=== PATIENT | female | born 1995 | race Caucasian/White ===

== ENCOUNTER 2019-11-06 20:32 | Emergency (ER) | payer OTHER, MEDICAID, SELFPAY ==
[2019-11-06 20:34] VITALS: BP 128/70; PULSE 98; RESP 16; TEMP 36.5; O2SAT 100
[2019-11-06 20:44] VITALS: BP 128/62; PULSE 100; RESP 20; TEMP 36.9; O2SAT 100
--- NOTE | 2019-11-06 20:46 | ED.URI ---
HPI - URI/Sore Throat General Chief Complaint: Upper Respiratory Infection Stated Complaint: I want to know if i have strep Time Seen by Provider: 11/06/19 20:42 Source: patient and RN notes reviewed Mode of arrival: other Limitations: no limitations History of Present Illness HPI Narrative: Pt is a 24 y/o female who presents to the ED with c/o nasal congestion and nasal drainage that began last night. Pt believes that she has strep throat or a sinus infection. Pt states that her throat feels like glass whenever she swallows. She states her sx are worsened whenever she is laying flat or moving. Pt also reports a sore throat, odynophagia, and a productive cough, but denies a fever, body aches, and being around any sick contacts. denies fever, sick contact, body aches recently went to [place] and hit the slot machines hx of tubal, smoker, marijuana, MD elicited complaint: nasal congestion (and drainage) Onset (ago): day(s) (1) Consistency: constant Related Data Allergies Allergy/AdvReac Type Severity Reaction Status Date / Time flurbiprofen Allergy Unknown HIVES Verified 08/04/19 11:33 GREEN PEPPERS Allergy Mild Rash Uncoded 08/04/19 11:16 [facility] Surgical History Surgical History (Updated 11/06/19 @ 20:54 by Rhonda Thomas) History of tubal ligation Family History Family History (Updated 04/18/14 @ 07:13 by DOCTOR UNKNOWN) Grandparent Family history of lung cancer Family history of malignant neoplasm of ovary Family history of heart disease in male family member before age 55 Diabetes mellitus Social History Social History (Updated 08/04/19 @ 11:40 by Corin Lin, [facility], ) Smoking packs per day: 1 Smoking cigarettes per day: 20.0 Years smoked: 0.5 Smoking pack-years: 0.50 Smoking status: Current every day smoker Tobacco type: cigarettes Alcohol intake: never Substance use: current Substance use type: marijuana Exam Const: General: healthy appearing, no acute distress, well developed and alert Orientation/consciousness: patient oriented x3 Limitations: no limitations HENMT: Head: normocephalic and atraumatic Ears: external ears normal General nose exam: Normal external nose present Mouth: Yes moist mucous membranes Throat: tonsils normal and posterior oropharynx abnormal erythema; no edema and no exudates Resp: Effort & Inspection: normal respiratory effort and able to speak in complete sentences Auscultation: clear to auscultation bilaterally Cardio: Rate: regular rate Rhythm: regular rhythm Peripheral pulses: radial pulses present and popliteal pulses present Neuro: General: patient oriented x3 Speech: normal speech Course Vital Signs Vital signs: Vital Signs Temperature 97.7 F 11/06/19 20:34 Pulse Rate 98 11/06/19 20:34 Respiratory Rate 16 11/06/19 20:34 Blood Pressure 128/70 11/06/19 20:34 Pulse Oximetry 100 11/06/19 20:34 Temperature 98.4 F 11/06/19 20:44 Pulse Rate 100 11/06/19 20:44 Respiratory Rate 20 11/06/19 20:44 Blood Pressure 128/62 11/06/19 20:44 Pulse Oximetry 100 11/06/19 20:44 MDM - URI/Sore Throat MDM Narrative Medical decision making narrative: Strep negative. URI. D/c. Lab Data Labs: Strep Screen Presumptive Negative *(Reference Range: Negative)* Discharge Plan Discharge Clinical Impression: Upper respiratory infection Qualifiers: URI type: unspecified URI Qualified Code(s): J06.9 - Acute upper respiratory infection, unspecified Patient Disposition: Home, Self-Care Condition: Stable Instructions: Upper Respiratory Infection (ED) Additional Instructions: Return to the ER if you have chest pain, you cannot breathe, you cannot swallow, or you have other concerns. Take over the counter decongestants and throat lozenges to help control your symptoms. Prescriptions: No Action albuterol sulfate [ProAir HFA] 90 mcg/actuation HFA aerosol inhaler 2
[2019-11-06 21:01] VITALS: BP 126/60; PULSE 97; RESP 20; TEMP 36.6; O2SAT 100
== END 2019-11-06 21:03 | disposition home or self-care (01) ==
PROVIDERS: Emergency Provider Emergency Medicine
DX: J06.9 Acute upper respiratory infection, unspecified (principal); F17.210 Nicotine dependence, cigarettes, uncomplicated
CPT/HCPCS: 87081; 87880; 99283

== ENCOUNTER 2019-11-10 16:29 | Emergency (ER) | payer OTHER, MEDICAID, SELFPAY ==
[2019-11-10 16:39] VITALS: BP 109/64; PULSE 94; RESP 16; TEMP 36.8; O2SAT 100
--- NOTE | 2019-11-10 16:42 | ED.URI ---
HPI - URI/Sore Throat General Chief Complaint: Upper Respiratory Infection Stated Complaint: chest congestion/rattles/mouth dryness/cough History of Present Illness HPI Narrative: This is a 24-year-old comes in complaining of cough congestion patient states that she has some shortness of breath. Patient states that she is having a sore throat denies taking anything for symptoms patient denies having any fever nausea vomiting and/or diarrhea Related Data Allergies Allergy/AdvReac Type Severity Reaction Status Date / Time flurbiprofen Allergy Unknown HIVES Verified 08/04/19 11:33 GRE[employer] PEPPERS Allergy Mild Rash Uncoded 08/04/19 11:16 Review of Systems Review of Systems: Narrative: CONSTITUTIONAL: Denies fever, chills, or sweats. EYES: Denies visual changes, redness, or discharge. ENT: Reports rhinorrhea, congestion, sore throat, or otalgia. CARDIOVASCULAR:Denies chest pain, palpitations, or edema. RESPIRATORY: Reports cough or dyspnea. GASTROINTESTINAL: Denies abdominal pain, nausea, vomiting, or diarrhea. GENITOURINARY: Denies dysuria or hematuria. SKIN:[Denies rash or itching. MUSCULOSKELETAL:Denies back pain, joint pain, or myalgia. NEUROLOGIC: Denies headache, numbness, or weakness. PSYCHIATRIC:Denies anxiety or depression [facility] Past Medical History Medical History (Updated 11/13/19 @ 11:57 by Bita Newby NP) Ovarian cyst RSV (respiratory syncytial virus infection) Surgical History Surgical History (Updated 11/06/19 @ 20:54 by Rhonda Thomas) History of tubal ligation Family History Family History (Updated 04/18/14 @ 07:13 by DOCTOR UNKNOWN) Grandparent Family history of lung cancer Family history of malignant neoplasm of ovary Family history of heart disease in male family member before age 55 Diabetes mellitus Social History Social History (Updated 11/06/19 @ 20:54 by Rhonda Thomas) Smoking packs per day: 1 Smoking cigarettes per day: 20.0 Years smoked: 0.5 Smoking pack-years: 0.50 Smoking status: Current every day smoker Tobacco type: cigarettes Alcohol intake: never Substance use: current Substance use type: marijuana Comments At time as signature, I have reviewed and agree with nursing past medical, social, surgical and family history. Please see nursing chart for further information. There is no relevant family history pertinent to the presenting complaint. Exam Narrative: Exam Narrative: GENERAL:Well-appearing, well-nourished, and in no acute distress. HEAD:Normocephalic, atraumatic. EYES: PERRLA and EOMI. ENT: Nares clear, positive rhinorrhea or epistaxis. Mucous membranes moist. Pharyngeal erythema NECK: Supple. CHEST: Clear to auscultation. No respiratory distress. HEART: Regular rate and rhythm. No murmur heard. Normal peripheral pulses. ABDOMEN: Soft, nontender, nondistended, normal active bowel sounds. EXTREMITIES: Normal range of motion. No edema. SKIN: Warm, dry, no rash. NEURO: No focal deficits. Alert and oriented x3. Patient smells of cigarette smoke clothing is disheveled Course Vital Signs Vital signs: Vital Signs Temperature 98.3 F 11/10/19 16:39 Pulse Rate 94 11/10/19 16:39 Respiratory Rate 16 11/10/19 16:39 Blood Pressure 109/64 11/10/19 16:39 Pulse Oximetry 100 11/10/19 16:39 Temperature 98.3 F 11/10/19 16:39 Pulse Rate 94 11/10/19 16:39 Respiratory Rate 16 11/10/19 16:39 Blood Pressure 109/64 11/10/19 16:39 Pulse Oximetry 100 11/10/19 16:39 MDM - URI/Sore Throat Differential Diagnosis Differential diagnosis: Likely upper respiratory infection, otitis media, sinusitis, viral infection, bronchitis, pharyngitis and other Discharge Plan Discharge Clinical Impression: Upper respiratory infection Patient Disposition: Home, Self-Care Condition: Stable Instructions: Antibiotic Form, Pharyngitis (ED), Rhinosinusitis (ED), Wheezing (ED) Prescriptions: New cetirizine [Zyrtec
== END 2019-11-10 16:52 | disposition home or self-care (01) ==
PROVIDERS: Emergency Provider Nurse Practitioner Family
DX: J06.9 Acute upper respiratory infection, unspecified (principal); F17.210 Nicotine dependence, cigarettes, uncomplicated
CPT/HCPCS: 99213; G0463

== ENCOUNTER 2019-11-23 20:07 | Emergency (ER) | payer OTHER, MEDICAID, SELFPAY ==
--- NOTE | ~2019-11-23 | XR_ITS ---
EXAMINATION: XR hand LT 2V INDICATION: Left hand pain, initial encounter TECHNIQUE: Two views of the left hand are obtained. COMPARISON: None available FINDINGS: There is an acute, traumatic, closed, oblique shaft fracture of the fifth metacarpal. The d istal fracture fragment is laterally displaced approximately 2 mm. Soft tissue swelling surrounds the fracture. Joint spaces are normal. No additional acute osseous findings are evident. IMPRESSION: 1. Acute oblique shaft fracture of the fifth metacarpal. Reviewed, dictated and finalized at location A.
[2019-11-23 20:10] VITALS: BP 114/70; PULSE 98; RESP 18; TEMP 36.4; O2SAT 98
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
[2019-11-23 21:57] VITALS: BP 124/70; PULSE 80; RESP 16; O2SAT 98
== END 2019-11-23 22:01 | disposition home or self-care (01) ==
PROVIDERS: Emergency Provider Emergency Medicine
DX: S62.327A Displaced fracture of shaft of fifth metacarpal bone, left hand, initial encounter for closed fracture (principal); V43.52XA Car driver injured in collision with other type car in traffic accident, initial encounter; W22.11XA Striking against or struck by driver side automobile airbag, initial encounter
CPT/HCPCS: 29125; 73120; 99284; A4565; A9270

== ENCOUNTER 2019-11-29 02:28 | Day surgery (SDC) | payer OTHER, MEDICAID, SELFPAY ==
[2019-11-28 13:29] VITALS: BMI 26.6
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
--- NOTE | ~2019-11-29 | XR_ITS ---
EXAMINATION: XR surgery orthopedic DATE: 11/29/2019 13:03 INDICATION: Spiral fracture of left fifth metacarpal. TECHNIQUE: 3 intraoperative fluoroscopic views of left hand were obtained. I was not present. Fluoros copy exposure time was 1 minute and 50 seconds. COMPARISON: Left hand radiographs 11/23/2019 FINDINGS: There is a spiral fracture of diaphysis of left fifth metacarpal in near-anatomic alignment status post open reduction internal fixation with 2 screws. IMPRESSION: 1. Spiral fracture of diaphysis of left fifth metacarpal status post open reduction internal fixation . Reviewed, dictated and finalized at location A. IMPRESSION: 1. Spiral fracture of diaphysis of left fifth metacarpal status post open reduc tion internal fixation.
[2019-11-29 08:45] VITALS: BP 127/71; PULSE 88; RESP 20; TEMP 36.2; O2SAT 100
[2019-11-29] MEDS: LACTATED RINGERS 1,000 ML 30 ML IV CONT (08:55)
--- NOTE | 2019-11-29 09:12 | WPDANESEPPF ---
Anes - Initial Pre Proc Eval Procedure: Operation Date: 11/29/19 10:30 Proposed Procedures p Open Reduction Internal Fixation Left Fifth Metacarpal - Joe Cullen MD Date/Time: 11/29/19 09:12 Surgeon: Joe Cullen MD Pre Op Diagnosis: Closed Non Displaced Left Fifth Metacarpal Fx Patient Data Age: 24 Gender: F Height: 5 ft 2 in Weight: 60.6 kg Last Vital Signs Temp 36.2 C L 11/29/19 08:45 Pulse 88 11/29/19 08:45 Resp 20 11/29/19 08:45 BP 127/71 11/29/19 08:45 Pulse Ox 100 11/29/19 08:45 Allergies Allergy/AdvReac Type Severity Reaction Status Date / Time flurbiprofen Allergy Unknown HIVES Verified 11/29/19 08:58 GREEN PEPPERS Allergy Mild Rash Uncoded 11/29/19 08:58 Home Medications Medication Instructions Recorded Confirmed Type albuterol sulfate 2 puff INHALATION QID PRN #8 gm 11/06/19 11/29/19 Rx Patient hx anesthesia problems: none Family hx anesthesia problems: none PMFSH Past Medical History Medical History Asthma GERD (gastroesophageal reflux disease) Ovarian cyst RSV (respiratory syncytial virus infection) Surgical History Surgical History History of tubal ligation Family History Family History Grandparent Family history of lung cancer Family history of malignant neoplasm of ovary Family history of heart disease in male family member before age 55 Diabetes mellitus Social History Social History Smoking packs per day: 1 Smoking cigarettes per day: 20.0 Years smoked: 0.5 Smoking pack-years: 0.50 Smoking status: Current every day smoker Tobacco type: cigarettes Alcohol intake: never Substance use: current Substance use type: marijuana Gender identity (if verbalized by the patient): Female Anes - Eval Final PreProcedure Day of Procedure 11/29/19 09:12 Patient weight: normal Heart: regular rate and rhythm Lungs: clear to auscultation Airway: Mallampati scale class II Neurological: alert and oriented Last oral intake: >/= 8 hours ASA classification: III Emergent: no Anesthetic plan: proceed Anesthesia type and monitoring: general LMA and standard monitoring Informed Consent: The patient's anesthetic plan and its attendant risks and benefits were discussed with the patient/family/POA. Questions were solicited and answers provided to the satisfaction of the patient/family/POA.
[2019-11-29] MEDS: SCOPOLAMINE 1.5 MG PATCH TRANSDERM (09:27)
[2019-11-29] MEDS: MIDAZOLAM HCL 2 MG/2 ML VIAL IV PUSH (09:40)
--- NOTE | 2019-11-29 10:31 | WPDHPUPDATE1 ---
History and Physical Update Update Date/Time: 11/29/19 10:31 History and Physical has been reviewed, including an updated exam of the patient. There are NO changes in the patient's condition. Risks, benefits, and alternatives have been discussed and questions answered. Patient agrees to proceed with procedure.
--- NOTE | 2019-11-29 10:57 | PM.OP ---
Procedure Note - Brief Procedure Note - Brief Date of procedure: 11/29/19 Pre-op diagnosis: Closed Non Displaced Left Fifth Metacarpal Fx Post-op diagnosis: same Procedure performed: ORIF displaced fracture of left 5th metacarpal shaft. Anesthesia: GETA Surgeon: Joe Cullen MD Legal Writing Professor: Gisella Tourniquet time (min): 60 Drains: No Packing: No Pathology: none sent Complications: No immediate complications Condition: stable Disposition: PACU
[2019-11-29] MEDS: ceFAZolin 2 GM/D5W 50 ML 2 GM/50 ML BAG IVPB (11:29)
[2019-11-29 13:12] VITALS: BP 114/52; PULSE 96; RESP 16; TEMP 36.6; O2SAT 95
[2019-11-29 13:25] VITALS: BP 129/71; PULSE 85; RESP 16; O2SAT 100
[2019-11-29 13:40] VITALS: PULSE 69; RESP 12; O2SAT 100
--- NOTE | 2019-11-29 13:52 | SUR.PHASEI ---
1348 - dr. serna at bedside talking with pt.
[2019-11-29 13:55] VITALS: BP 121/74; PULSE 69; RESP 14; O2SAT 99
[2019-11-29 14:29] VITALS: BP 130/82; PULSE 82
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
--- NOTE | 2019-11-29 16:37 | PM.PROC ---
Procedure Note - Detailed Date of procedure: 11/29/19 Pre-op diagnosis: Closed Non Displaced Left Fifth Metacarpal Fx Closed displaced fracture of the left 5th metacarpal shaft. Post-op diagnosis: same Procedure performed: ORIF of displaced fracture of the left 5th metacarpal shaft. Description of procedure: The appropriate hand was marked while the patient was in the holding area. She was wheeled to the operating room and placed supine on the operating table. A time-out was held and confirmed she was given general endotracheal intubation. The left hand and forearm were prepped and draped in the usual fashion. A C-arm image was made for planning purposes. The area of the 5th metacarpal was infiltrated with a 50 50 mixture of 1% lidocaine with epinephrine and 0.5% Marcaine plain. A chema was placed on the dorsal hand over the 5th metacarpal for incision. The tourniquet was inflated to 250 mmHg. The incision was made through the skin. The subcutaneous tissue was divided by sharp and blunt dissection. No significant cutaneous nerves were identified. Access to the periosteum was done just to the radial side of the extensor tendon the fracture was easily identified and was exposed throughout its length. Fracture clot was removed. The fracture was reduced and a bone clamp applied. Two screws from the modular handset were utilized for fixation. These were 1.3 mm screws 1 was 7 mm the other 5 mm. Both were countersunk. Stability was excellent. C-arm images confirmed the position of the screws and the appropriateness of their length. The deep fascia was repaired after irrigating the wound. The skin was closed with a running intradermal 4-0 Monocryl suture. Soft bulky bandage with Coban wrap around the ring and small fingers was applied. No splint was applied. She was discharged from the operating room stable condition. The tourniquet was released at 60 minutes just at the time the wound closure began. She received 2 g of Ancef prior to start time. She was discharged home with a prescription for hydrocodone 12/22/2024 14. She was also discharged with instructions in wound care and follow-up. The discharging nurse reported that the patient was in a great her a to get out of the operating area and the IV was discontinued abruptly. Surgeon: Joe Cullen MD
== END 2019-11-29 14:45 | disposition home or self-care (01) ==
PROVIDERS: PCP Family Medicine; Visit Provider Plastic Surgery
PROC: (CPT 26615; principal; 2019-11-29 10:30)
DX: S62.357A Nondisplaced fracture of shaft of fifth metacarpal bone, left hand, initial encounter for closed fracture (principal); V49.9XXA Car occupant (driver) (passenger) injured in unspecified traffic accident, initial encounter; J45.909 Unspecified asthma, uncomplicated; K21.9 Gastro-esophageal reflux disease without esophagitis; F17.210 Nicotine dependence, cigarettes, uncomplicated; F12.90 Cannabis use, unspecified, uncomplicated
CPT/HCPCS: 26615; A9270; C1713; J0690; J1100; J2250; J2270; J2405; J2704; J3010; J7120

== ENCOUNTER 2019-12-11 19:54 | Emergency (ER) | payer OTHER, MEDICAID, SELFPAY ==
[2019-12-11 20:07] VITALS: BP 111/76; PULSE 96; RESP 16; TEMP 38.6; O2SAT 99
--- NOTE | 2019-12-11 20:12 | ED.URI ---
HPI - URI/Sore Throat General Chief Complaint: Upper Respiratory Infection Stated Complaint: fever/ear infection/sore throat Time Seen by Provider: 12/11/19 20:12 Source: patient and RN notes reviewed Mode of arrival: ambulatory Limitations: no limitations History of Present Illness HPI Narrative: 24 year old female who presents to [facility] with complaints of sore throat, left ear pain and fevers since this morning. Patient states that she has been taking Tylenol and Ibuprofen for her fevers and pain which she rates as 6/10 and is aggravated by swallowing. Patient denies any sinus congestion or drainage, no cough or any shortness of breath or any known exposure to strep. Patient states that her last dose of oral antipyretics was at 1800. MD elicited complaint: fever, sore throat and other (ear pain) Pertinent past history: seasonal allergies Onset (ago): day(s) (1) Consistency: constant Severity: moderate Pain scale (0-10): 6 Able to tolerate fluids by mouth: Yes Exacerbating factors: swallowing Relieving factors: nothing Associated symptoms: fever, chills, sore throat and ear pain (left) Treatments prior to arrival: acetaminophen and ibuprofen Related Data Allergies Allergy/AdvReac Type Severity Reaction Status Date / Time flurbiprofen Allergy Unknown HIVES Verified 12/11/19 20:00 GREEN PEPPERS Allergy Mild Rash Uncoded 12/11/19 20:00 Review of Systems Review of Systems: Narrative: CONSTITUTIONAL: Positive for fever, chills, or sweats. EYES: Denies visual changes, redness, or discharge. ENT: Denies rhinorrhea, congestion,positive for sore throat, left otalgia. CARDIOVASCULAR: Denies chest pain, palpitations, or edema. RESPIRATORY: Denies cough or dyspnea. GASTROINTESTINAL: Denies abdominal pain, nausea, vomiting, or diarrhea. GENITOURINARY: Denies dysuria or hematuria. SKIN: Denies rash or itching. MUSCULOSKELETAL: Denies back pain, joint pain, or myalgia. NEUROLOGIC: Denies headache, numbness, or weakness. PSYCHIATRIC: Denies anxiety or depression. All systems reviewed & are unremarkable except as noted in HPI and below PMFSH Past Medical History Medical History Asthma GERD (gastroesophageal reflux disease) Ovarian cyst RSV (respiratory syncytial virus infection) Surgical History Surgical History History of tubal ligation Family History Family History Grandparent Family history of lung cancer Family history of malignant neoplasm of ovary Family history of heart disease in male family member before age 55 Diabetes mellitus Social History Social History (Updated 12/12/19 @ 12:14 by Arielle Ashby NP) Smoking packs per day: 0.5 Smoking cigarettes per day: 10.0 Years smoked: 1.5 Smoking pack-years: 0.75 Smoking status: Current every day smoker Tobacco type: cigarettes Alcohol intake: never Substance use: current Substance use type: marijuana Living arrangements: with family Gender identity (if verbalized by the patient): Female Comments At time of signature, agree with nursing past medical, surgical, social history. There is no relevant family history pertinent to the presenting complaint Exam Narrative: Exam Narrative: GENERAL: Well-appearing, well-nourished, and in no acute distress. HEAD: Normocephalic, atraumatic. EYES: PERRLA and EOMI. ENT: Nares clear, no rhinorrhea or epistaxis. Mucous membranes moist.TM's normal with good light reflex, throat red swollen with pus pockets noted to bilateral tonsils with tonsils red and enlarged. NECK: Supple.lymphadenopathy CHEST: Clear to auscultation. No respiratory distress.SAO2 99% on room air HEART: Regular rate and rhythm. No murmur heard. Normal peripheral pulses. ABDOMEN: Soft, nontender, nondistended, normal active bowel sounds. EXTREMITIES: Normal range of motion. No
== END 2019-12-11 20:23 | disposition home or self-care (01) ==
PROVIDERS: Emergency Provider Registered Nurse
DX: J02.0 Streptococcal pharyngitis (principal); J45.909 Unspecified asthma, uncomplicated; K21.9 Gastro-esophageal reflux disease without esophagitis; F17.210 Nicotine dependence, cigarettes, uncomplicated
CPT/HCPCS: 87880; 99213; G0463

== ENCOUNTER 2020-03-01 14:40 | Emergency (ER) | payer OTHER, MEDICAID, SELFPAY | END 2020-03-01 15:00 | disposition left against medical advice (07) | LOC: EXPCOLL 14:55 | PROVIDERS: Emergency Provider Nurse Practitioner; PCP Family Medicine | DX: Z53.21 Procedure and treatment not carried out due to patient leaving prior to being seen by health care provider (principal) | CPT/HCPCS: 99199 ==

== ENCOUNTER 2020-10-03 11:42 | Emergency (ER) | payer OTHER, MEDICAID, SELFPAY ==
[2020-10-03 12:01] VITALS: BP 124/73; PULSE 97; RESP 16; TEMP 36.3; O2SAT 100
--- NOTE | 2020-10-03 12:18 | ED.BACK ---
HPI - Back Pain/Injury General Chief Complaint: Back Pain/Injury Stated Complaint: Back Pain Time Seen by Provider: 10/03/20 12:10 Source: patient Mode of arrival: ambulatory Limitations: no limitations History of Present Illness HPI Narrative: Phoebe Hill is a 25 yo female with a PMH of uti who comes with mid back discomfort, started a day ago. Unsure if back tenderness is due to lifting/movement or uti. Pain in back is 5/10 midback (not lumbar), more on left than right. States she has a history of intermittent UTIs, only feel like she has a UTI but wants to be evaluated for one Related Data Home Medications Medication Instructions Recorded Confirmed albuterol sulfate [Ventolin HFA] INHALATION 10/03/20 Allergies Allergy/AdvReac Type Severity Reaction Status Date / Time flurbiprofen Allergy Unknown HIVES Verified 12/11/19 20:00 GREEN PEPPERS Allergy Mild Rash Uncoded 12/11/19 20:00 Review of Systems Review of Systems: Narrative: CONSTITUTIONAL: Denies fever, chills, sweats. EYES: Denies visual changes, redness, discharge. ENT: Denies rhinorrhea, congestion, sore throat, otalgia. CARDIOVASCULAR: Denies chest pain, palpitations, edema. RESPIRATORY: Denies dyspnea, wheezing, cough GASTROINTESTINAL: Denies abdominal pain, nausea, vomiting, diarrhea. GENITOURINARY: Denies dysuria, hematuria, abnormal discharge SKIN: Denies rash or itching. NEUROLOGIC: Denies numbness, or focal weakness. PSYCHIATRIC: Denies anxiety or depression. Mid back pain with movement PMFSH Past Medical History Medical History (Updated 10/03/20 @ 12:29 by Latisha España CNP) Asthma GERD (gastroesophageal reflux disease) Ovarian cyst RSV (respiratory syncytial virus infection) Surgical History Surgical History History of tubal ligation Family History Family History Grandparent Family history of lung cancer Family history of malignant neoplasm of ovary Family history of heart disease in male family member before age 55 Diabetes mellitus Social History Social History (Updated 10/03/20 @ 12:33 by Latisha España CNP) Smoking packs per day: 1.0 Smoking cigarettes per day: 20.0 Years smoked: 1.5 Smoking pack-years: 1.50 Smoking status: Current every day smoker Tobacco type: cigarettes Alcohol intake: never Substance use: current Substance use type: marijuana Gender identity (if verbalized by the patient): Female Comments At time of signature, I agree with nursing past medical, surgical, social and family history. There is no relevant family history pertinent to the presenting complaint. Exam Narrative: Exam Narrative: GENERAL: This is a well-nourished, well-developed patient, in mild distress. HEAD: normocephalic, atraumatic. EYES: Sclera clear/white. Vision is grossly intact. EARS: External ears normal, Hearing grossly intact. NOSE: External nose normal, no rhinorrhea. THROAT: Mucous membranes moist, NECK: Neck supple, CARDIOVASCULAR: tachycardic rate and rhythm without murmurs, gallops, or rubs. RESPIRATORY: Clear to auscultation. Breath sounds equal bilaterally. No wheezes, rales, or rhonchi. GASTROINTESTINAL: Abdomen soft, non-tender, SKIN: warm, intact with no suspicious lesions or rash, good texture and turgor. NEURO: awake, alert, and oriented to person, place and time. There were no obvious focal neurologic abnormalities. Steady gait EXTREMITIES: Normal range of motion. BACK: tender without deformity, midback pain tender with twisting, L > R; no flank pain Course Course Emergency Course: Came in complaining of back pain thinking that she might have a UTI UA is negative for protein nitrates and leukocyte esterase. Discussed with her possible causes of back pain; based on exam discussed it might be muscle strain and started on baclofen Discussed good sleeping situations and
== END 2020-10-03 12:33 | disposition home or self-care (01) ==
PROVIDERS: Emergency Provider Nurse Practitioner
DX: M54.6 Pain in thoracic spine (principal); F17.210 Nicotine dependence, cigarettes, uncomplicated; J45.909 Unspecified asthma, uncomplicated; K21.9 Gastro-esophageal reflux disease without esophagitis
CPT/HCPCS: 81003; 99213; G0463

== ENCOUNTER 2021-01-24 10:00 | Emergency (ER) | payer SELFPAY ==
[2021-01-24] VITALS (10 sets, daily range): BP systolic 96–132; BP diastolic 52–84; PULSE 63–114; RESP 15–25; TEMP 36.6–37.6; O2SAT 97–100
--- NOTE | ~2021-01-24 | US_ITS ---
EXAMINATION: US pelvic complete w TV EXAM DATE: 01/24/2021 13:07 INDICATION: Right lower quadrant pain. TECHNIQUE: Pelvic transabdominal and transvaginal sonogram was performed. There are multiple graysca le and Doppler images available for interpretation. There is no prior study for comparison. FINDINGS: Uterus measures 9.0 x 4.9 x 4.9 cm, possible small posterior myometrial fibroid measuring up to 1.7 cm. Endometrial stripe measures 5 mm, within normal limits. There is no free pelvic fluid. Right adnexa: The ovary measures 2.9 x 2.5 x 1.9 cm and is morphologically normal. Ovarian vascular f low confirmed. Left adnexa: The ovary measures 2.8 x 2.0 x 2.5 cm and is morphologically normal. Ovarian vascular fl ow confirmed. IMPRESSION: 1. Possible small fibroid. Reviewed, dictated and finalized at location A. IMPRESSION: 1. Possible small fibroid.
--- NOTE | ~2021-01-24 | CT_ITS ---
EXAMINATION: CT abdomen pelvis w con EXAM DATE: 01/24/2021 11:44 INDICATION: Dysuria, low abdominal pain. Nausea vomiting and diarrhea. TECHNIQUE: Spiral CT of the abdomen and pelvis was performed following intravenous injection of 100 m L Omnipaque 350. Axial, coronal and sagittal images of the abdomen and pelvis were reviewed. The do se-length product (DLP) for this examination was 241.80 mGy-cm. The exposure was tailored according to patient size (auto mA exposure control), and iterative reconstruction (ASIR) was used as additiona l dose reduction technique. Comparison is made to prior examination from 11/07/2016. FINDINGS: The liver, spleen, adrenal glands and pancreas are unremarkable. Gallbladder is unremarkab le. No biliary obstruction. Portal and splenic veins are patent. Kidneys enhance symmetrically. T here is no hydronephrosis. The uterus and ovaries are unremarkable, no adnexal mass. The bladder i s unremarkable. There is no retroperitoneal or pelvic lymphadenopathy. The appendix is normal. The stomach and small bowel are unremarkable. There is expected amount of c olonic stool. No free intraperitoneal gas. The heart is normal in size. There are no pericardial or pleural effusions. The lung bases are unremarkable. The bones are unremarkable. IMPRESSION: 1. No acute intra-abdominal findings. Reviewed, dictated and finalized at location A.
--- NOTE | 2021-01-24 10:14 | ECG_ITS ---
Measurements Intervals [place] Rate: 102 P: 68 WV: 159 QRS: 60 QRSD: 93 T: 60 QT: 328 QTc: 427 Interpretive Statements SINUS TACHYCARDIA MINIMAL Q WAVES- ANTEROLAT/INF LEADS BASELINE ARTIFACT- II, III, AVF, V4-V6 BORDERLINE ECG Electronically Signed On 01-24-2021 10:43:24 CDT by Alexis Keith D.O.
--- NOTE | 2021-01-24 10:18 | ED.GENADULT ---
HPI - General Adult General Chief complaint: Abdominal Pain Stated complaint: abd pain/nausea/vomiting Time Seen by Provider: 01/24/21 10:05 Source: patient Mode of arrival: EMS Limitations: no limitations History of Present Illness HPI narrative: Patient presents for evaluation of abdominal pain, nausea, vomiting, diarrhea. She indicates she developed diarrhea and vomiting yesterday after returning to the area after being released from rehab in [place]. She has a history of methamphetamine abuse with last use in November of this year. Upon her arrival back in this area, police detained her for an outstanding warrant. She was brought in in police custody today. She states she developed pain in the right lower quadrant this morning which has been constant since of symptom onset. She states the pain is 9 out of 10 in severity, radiating into the suprapubic region. No descriptive quality to the pain. She denies any fever but reports chills. She has experienced dysuria without other urinary symptoms for the last few days. She has a chronic white vaginal discharge which is unchanged. She indicates she has a history of gallbladder disease and was planning on having cholecystectomy prior to going to rehab. However she relapsed on methamphetamine, her mother assisted her in making a decision to go to rehab first. She denies any other illicit drug use. She has not consumed alcohol in the last 5 years. She does smoke 1 pack/day. She has felt short of breath but states that this is most likely due to being worked up . She recently completed antibiotics for a sinus infection, sounds to be a cephalosporin. Related Data Home Medications Medication Instructions Recorded Confirmed albuterol sulfate [Ventolin HFA] INHALATION 10/03/20 cetirizine mg 01/24/21 Allergies Allergy/AdvReac Type Severity Reaction Status Date / Time GREEN PEPPERS Allergy Mild Rash Uncoded 01/24/21 10:16 Review of Systems Review of Systems: Narrative: CONSTITUTIONAL: Reports chills. Denies fever or sweats. EYES: Denies visual changes, redness, or discharge. ENT: Denies rhinorrhea, congestion, sore throat, or otalgia. CARDIOVASCULAR: Denies chest pain, palpitations, or edema. RESPIRATORY: Denies cough or dyspnea. GASTROINTESTINAL: Reports abdominal pain, nausea, vomiting, diarrhea, blood in the stool GENITOURINARY: Reports dysuria without other urinary symptoms. Reports chronic white vaginal discharge, not changed SKIN: Denies rash or itching. MUSCULOSKELETAL: Denies back pain, joint pain, or myalgia. NEUROLOGIC: Denies headache, numbness, dizziness, or weakness. PSYCHIATRIC: Denies anxiety or depression. [facility] Past Medical History Medical History Asthma Gallbladder disease GERD (gastroesophageal reflux disease) Ovarian cyst RSV (respiratory syncytial virus infection) Substance abuse Surgical History Surgical History History of tubal ligation Family History Family History Grandparent Family history of lung cancer Family history of malignant neoplasm of ovary Family history of heart disease in male family member before age 55 Diabetes mellitus Social History Social History Smoking packs per day: 1.0 Smoking cigarettes per day: 20.0 Years smoked: 1.5 Smoking pack-years: 1.50 Smoking status: Current every day smoker Tobacco type: cigarettes Alcohol intake: former Alcohol use details: Quit 5 years ago Substance use: former Substance use type: amphetamines Gender identity (if verbalized by the patient): Female Exam Narrative: Exam Narrative: GENERAL: Visibly uncomfortable HEAD: Normocephalic, atraumatic. EYES: PERRLA and EOMI. ENT: Nares clear, no rhinorrhea or epistaxis. Mucous m
[2021-01-24 10:52] LABS: Add Urine Microscopic? YES; Appearance Urine Cloudy (Clear); Bacteria Urine Trace /hpf; Bilirubin Urine Negative (Negative); Blood Urine Negative (Negative); Color Urine Yellow (Yellow); Glucose Urine UA Negative (Negative); Ketones Urine Negative (Negative); Leukocyte Esterase Ur Trace LEU/UL (Negative); Mucus Urine Rare /lpf; Nitrate Urine Negative (Negative); Protein Urine Negative (Negative); RBC Urine 0-2 /hpf (0-2); Specific Grav Ur 1.026 (1.001-1.035); Squamous Epithelial Cell Urine Many /hpf (Few); Urobilinogen Urine Negative mg/dL (<2.0)
[2021-01-24 10:54] LABS: Amphetamine Screen Urine Negative (Negative); Barbiturate Screen Urine Negative (Negative); Benzodiazepines Screen Urine Negative (Negative); Cannabinoid Screen Urine Negative (Negative); Cocaine Screen Urine Negative (Negative); Methadone Screen Urine Negative (Negative); Opiate Screen Urine Negative (Negative); Phencyclidine Screen Urine Negative (Negative)
[2021-01-24] MEDS: SODIUM CHLORIDE 0.9% IV 1,000 ML 999 ML IV CONT ×2 (11:08→12:14)
[2021-01-24 11:09] LABS: Basophils Percent Auto 0.6 % (0.2-1.2); Eosinophils Absolute Auto 0.1 K/mm3 (0-0.3); Eosinophils Percent Auto 1.2 % (0-4.4); Hematocrit 41.3 % (37.0-47.0); Hemoglobin 13.4 g/dL (12.0-15.0); Immature Granulocyte Absolute 0.01 K/mm3 (0.00-0.031); Immature Granulocyte Percent A 0.2 % (0-0.5); Mean Corpuscular HGB Conc 32.4 g/dl (32-36); Mean Corpuscular Hemoglobin 28.5 pg (26-34); Mean Corpuscular Volume 87.9 fl (80-100); Monocytes Absolute Auto 0.3 K/mm3 (0.1-0.6); Monocytes Percent Auto 5.8 % (2.6-8.5); Neutrophils Percent Auto 60.2 % (45.5-73.1); Platelet Count Result 293 k/mm3 (150-375); Red Cell Distribution Width 14.7 % (11.5-14.5)
[2021-01-24] MEDS: HALOPERIDOL LACTATE 5 MG/ML VIAL 2 MG IV PUSH (11:11)
[2021-01-24 11:18] LABS: Lactic Acid Reflex 2.2 mmol/L (0.7-2.1)
[2021-01-24] MEDS: ACETAMINOPHEN 325 MG TABLET 650 MG PO (11:27)
[2021-01-24 11:34] LABS: Alanine Aminotransferase 20 U/L (4-35); Albumin Level 4.5 g/dL (3.5-5.1); Alkaline Phosphatase 91 U/L (38-126); Anion Gap 12 mmol/L (8-16); Aspartate Amino Transferase 27 U/L (14-36); Bilirubin,Total 0.3 mg/dL (0.2-1.3); Blood Urea Nitrogen 11 mg/dL (7-17); Calcium 9.6 mg/dL (8.4-10.2); Carbon Dioxide 21 mmol/L (22-30); Chloride 110 mmol/L (98-107); Estimated CRCL calculation 84 ml/min; Estimated Glomerular Filt Rate > 60; Glucose 98 mg/dL (65-105); Lipase 78 U/L (23-300); Potassium 3.8 mmol/L (3.4-5.0); Sodium 143 mmol/L (137-145)
--- NOTE | 2021-01-24 11:34 | PC.NURSE ---
To CT Scan
[2021-01-24 11:38] LABS: Estimated CRCL calculation 74 ml/min; Estimated Glomerular Filt Rate > 60
[2021-01-24 14:06] LABS: Reflex Lactic Acid Yes or No Add Lactic
[2021-01-24] MEDS: cefTRIAXone 1 GM VIAL 0.5 GM IM (14:41)
[2021-01-24] MEDS: LIDOCAINE HCL 1% LOCAL INJ 20 ML VIAL 2.1 ML IM (14:41)
[2021-01-24 14:56] LABS: Lactic Acid 0.9 mmol/L (0.7-2.1)
== END 2021-01-24 15:51 ==
PROVIDERS: Emergency Provider Nurse Practitioner
DX: N73.9 Female pelvic inflammatory disease, unspecified (principal); D25.9 Leiomyoma of uterus, unspecified; R10.84 Generalized abdominal pain; R11.2 Nausea with vomiting, unspecified; J45.909 Unspecified asthma, uncomplicated; K21.9 Gastro-esophageal reflux disease without esophagitis; F17.210 Nicotine dependence, cigarettes, uncomplicated; R00.0 Tachycardia, unspecified
CPT/HCPCS: 36415; 74177; 76830; 76856; 80053; 80307; 81001; 81025; 83605; 83690; 85025; 87040; 87070; 87086; 87491; 87591; 87808; 93005; 96361; 96365; 96372; 96375; 99284; A9270; J0696; J1630; J2543; J7030; Q9967

== ENCOUNTER → 2025-03-28 12:34 | Outpatient (CLI) | payer OTHER, SELFPAY ==
--- NOTE | ~2025-03-28 | XR_ITS ---
Clinical Indication: Cough PA and lateral views of the chest: Comparison: None Findings: The lungs are clear, without evidence of focal consolidation or pleural effusion. Cardiome diastinal silhouette is within normal limits. Bones and soft tissues are unremarkable. Impression: Normal chest. Reviewed, dictated and finalized at location . Impression: Normal chest.
== END ==
LOC: EXPCRAD 12:40
PROVIDERS: PCP Emergency Medicine; Visit Provider Emergency Medicine
DX: R05.9 Cough, unspecified (principal); Z87.891 Personal history of nicotine dependence
CPT/HCPCS: 71046